=== PATIENT | female | born 2005 | race Caucasian/White ===

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

== ENCOUNTER 2024-01-14 00:09 | Emergency (ER) | payer OTHER, SELFPAY ==
[2024-01-14 00:11] VITALS: BP 146/88; PULSE 77; RESP 15; TEMP 36.7; O2SAT 98
--- NOTE | 2024-01-14 01:12 | W.ED.EXTPRO ---
HPI - Extremity Problem General: Chief complaint: Extremity Problem,Nontraumatic Stated complaint: Fingers Wont Bend Time Seen by Provider: 01/14/24 00:42 Source: patient Mode of arrival: ambulatory Limitations: no limitations History of Present Illness: Patient is a 18-year-old female here for complaints of bilateral hand and finger pain as well as a rash to her bilateral hands. 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 She states she is required to wear some type of glove and believes she is having an allergic reaction as she has developed an itchy burning-like rash to her hands. 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 MD Complaint: extremity pain Onset (ago): day(s) Pain Consistency: constant Location: left, right and upper extremity Radiation: none Relieving factors: immobilization Exacerbating factors: range of motion Associated symptoms: Reports no associated symptoms and rash Context: other (recent new job) Review of Systems Musc: Reports: extremity pain (bilateral hands) and extremity swelling (bilateral hands) Skin/Breast: Reports: rash and pruritus Neuro: Denies: numbness in extremities, weakness in extremities or sensory changes PFS ED PFSH: Social History Second hand smoke exposure: No Alcohol intake: never Substance/Drug Use: never Physical Exam Const: COMMON NORMALS: no acute distress, patient oriented x3, no limitations, alert and well nourished Extremity: COMMON NORMALS: full ROM and capillary refill normal GENERAL: Yes normal exam except as noted RIGHT UPPER EXTREMITY: Yes hand & digits LEFT LOWER EXTREMITY: Yes foot & digits OTHER: I do not appreciate any edema to hands/digits. She complains of soreness/stiffness to all MCP and IP joints but is able to flex/extend them normally. No warmth/streaking. She does have a mild erythematous contact dermatitis appearing rash to dorsal aspects of hands. Gives history of new type of gloves she has to wear. Neuro: COMMON NORMALS: patient oriented x3, moves all extremities, no focal motor deficits and no sensory deficits noted SENSORIUM/ORIENTATION: Yes alert Course Vital Signs: Vital signs: Vital Signs Temperature 98.0 F 01/14/24 00:11 Pulse Rate 63 01/14/24 01:56 Respiratory Rate 16 01/14/24 01:56 Blood Pressure 146/88 01/14/24 00:11 Pulse Oximetry 99 01/14/24 01:56 Oxygen Delivery Me thod Room Air 01/14/24 01:55 MDM - Extremity (Nontraumatic) Medical Decision Making Patient here with soreness and stiffness to her bilateral hands. 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 Also has a mild contact dermatitis to the hands from wearing a new type of gloving. Recommend ice and anti-inflammatories. She was given a shot of steroids prior to discharge. No radiology studies performed this visit Discharge Plan Discharge Patient Disposition: Home Clinical Impression: Contact dermatitis of hand Overuse syndrome of left hand Qualifiers: Encounter type: initial encounter Qualified Code(s): S66.912A - Strain of unspecified muscle, fascia and tendon at wrist and hand level, left hand, initial encounter Overuse syndrome of right hand Qualifiers: Encounter type: initial encounter Qualified Code(s): S66.911A - Strain of unspecified muscle, fascia and tendon at wrist and hand level, right hand, initial encounter Condition: Stable Prescriptions: No Action (DME) CAM WALKER Qty: 1 0RF Rx Instructions: As directed (DME) Ankle sleeve Qty: 1 0RF Rx Instructions: As directed (DME) Lace up ankle brace Qty: 1 0RF Rx Instructions: As directed Discharge Orders: Discharge ED (Routine); Ordered 01/14/24 Ordered By: Iva Etienne Referrals: Ellis Torres MD [Primary Care Provider] - Activity Restrictions/Additional Instructions: As we discussed you may apply [id number] topical hydrocortisone cream to the rash on your hands twice daily. Try to rest the hands and ice them and begin taking [id number] ibuprofen-800 mg every 6-8 hours as needed for discomfort. Stand Alone Forms: Work/School Release Coding Level of Care Code ED Enameler for Iram Swan
[2024-01-14] MEDS: methylPREDNISolone sod succ 125 mg/2 mL INJ IM (01:28)
[2024-01-14 01:55] VITALS: PULSE 63; RESP 16; O2SAT 99
[2024-01-14 01:56] VITALS: PULSE 63; RESP 16; O2SAT 99
== END 2024-01-14 01:46 | disposition home or self-care (01) ==
PROVIDERS: Emergency Provider Physician Assistant; PCP Family Medicine
DX: L25.9 Unspecified contact dermatitis, unspecified cause (principal); S66.912A Strain of unspecified muscle, fascia and tendon at wrist and hand level, left hand, initial encounter; S66.911A Strain of unspecified muscle, fascia and tendon at wrist and hand level, right hand, initial encounter; X50.9XXA Other and unspecified overexertion or strenuous movements or postures, initial encounter; Y99.0 Civilian activity done for income or pay
CPT/HCPCS: 96372; 99284; J2919